=== PATIENT | female | born 1995 | race Caucasian/White ===

== ENCOUNTER 2017-08-26 10:53 | Emergency (ER) | payer MEDICAID ==
[2017-08-26 10:56] VITALS: BMI 39.8
[2017-08-26 10:59] VITALS: BP 154/104; PULSE 73; RESP 18; TEMP 98.7; O2SAT 100
--- NOTE | 2017-08-26 11:02 | ED PDOC ---
HPI: Dental Pain/Injury Time Seen by Provider: 08/26/17 11:01 Chief Complaint (Provider): tooth pain History Per: Patient Additional Complaint(s): 21-year-old female presents to emergency department with dental pain. Patient has appointment tomorrow with dentist but when she called her dentist secondary to the pain he told her to come to ED. Patient took ibuprofen but this did not help the pain. She denies any fever or chills and is tolerating liquids and solids. Past Medical History Reviewed: Historical Data, Nursing Documentation, Vital Signs Vital Signs: Last Vital Signs Temp 98.7 F 08/26/17 10:54 Pulse 73 08/26/17 10:54 Resp 18 08/26/17 10:54 BP 154/104 H 08/26/17 10:54 Pulse Ox 100 08/26/17 10:54 - Medical History PMH: No Chronic Diseases - Surgical History Surgical History: (x 2) - Family History Family History: States: No Known Family Hx - Living Arrangements Living Arrangements: With Family - Social History Current smoker - smoking cessation education provided: No Alcohol: None Drugs: Denies - Home Medications Home Medications: Ambulatory Orders Medication Instructions Recorded Clindamycin [Cleocin] 300 mg PO TID #21 cap 08/26/17 traMADol [Ultram] 50 mg PO TID PRN #15 tab 08/26/17 - Allergies Allergies/Adverse Reactions: Allergies Allergy/AdvReac Type Severity Reaction Status Date / Time No Known Allergies Allergy Verified 08/26/17 11:21 Review of Systems ROS Statement: Except As Marked, All Systems Reviewed And Found Negative Constitutional: Negative for: Fever ENT: Positive for: Other (dental pain) Gastrointestinal: Negative for: Vomiting Neurological: Negative for: Headache Physical Exam - Reviewed Nursing Documentation Reviewed: Yes Vital Signs Reviewed: Yes - Physical Exam Appears: Positive for: Well, Non-toxic, No Acute Distress Skin: Negative for: Rash Eye Exam: Positive for: Normal appearance ENT: Positive for: Other (Dental caries noted to left lower mandible molar teeth with surrounding gingival swelling, no dental abscess, airway patent, uvula midline) Neck: Positive for: Normal Neurologic/Psych: Positive for: Alert, Oriented - Laboratory Results Urine POC: Negative - ECG O2 Sat by Pulse Oximetry: 100 Pulse Ox Interpretation: Normal Medical Decision Making Medical Decision Makin21 year old with dental pain Plan: test PO tramadol Prescriptions given for tramadol and clindamycin. Patient was advised to continue with ibuprofen as well for pain and was instructed to follow up tomorrow as scheduled with her dentist. Disposition - Clinical Impression Clinical Impression: Pain, dental - Patient ED Disposition Is Patient to be Admitted: No Counseled Patient/Family Regarding: Diagnosis, Need For Followup, Rx Given - Disposition Referrals: [facility] [Outside] Disposition: Routine/Home Disposition Time: 11:53 Condition: STABLE Additional Instructions: Take prescription medications as directed. Continue with ibuprofen as well for pain. Follow-up as casual tomorrow with dentist. Prescriptions: Clindamycin [Cleocin] 300 mg PO TID #21 cap traMADol [Ultram] 50 mg PO TID PRN #15 tab PRN Reason: Pain, Moderate (4-7) Instructions: Toothache (ED)
== END 2017-08-26 12:15 | disposition home or self-care (01) ==
LOC: H.ER 10:53
DX: K08.89 Other specified disorders of teeth and supporting structures (principal)

== ENCOUNTER 2018-05-22 14:44 | Emergency (ER) | payer OTHER, MEDICAID ==
[2018-05-22 14:45] VITALS: BMI 39.8
[2018-05-22 14:54] VITALS: BP 145/82; PULSE 92; RESP 16; TEMP 99; O2SAT 98
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
--- NOTE | 2018-05-23 10:02 | CARD ---
APPROVED REPORT Date of service: 05/22/2018 EKG Measurement Heart [id number] HI [id number] <Conclusion> Normal sinus rhythm Normal ECG
== END 2018-05-22 16:48 | disposition home or self-care (01) ==
LOC: H.ER 14:44
DX: Z04.1 Encounter for examination and observation following transport accident (principal); V48.6XXD Car passenger injured in noncollision transport accident in traffic accident, subsequent encounter
CPT/HCPCS: 71046; 73030; 73501; 81025; 93005; 96372; 99285; J1885